=== PATIENT | female | born 1945 | race American Indian/Alaskan Native ===

== ENCOUNTER → 2024-02-26 | Outpatient (CLI) | payer MEDICARE, MEDICAID, SELFPAY ==
--- NOTE | 2024-02-26 08:57 | EKG_ITS ---
[facility] Test Date: 2024-02-26 Pat Name: MARAL ROBBINS Department: Room: - Gender: Female Loan Operations Manager: SHIV : 1945 Requested By: Blayne Lantigua Order Number: [id number] Reading MD: Blayne Lantigua Measurements Intervals [place] Rate: 75 P: 164 MT: 232 QRS: 246 QRSD: 127 T: 114 QT: 416 QTc: 468 Interpretive Statements ELECTRONIC VENTRICULAR PACEMAKER ABNORMAL RHYTHM ECG Compared to ECG 11/11/2023 20:44:19 No significant changes /store/S0/[id number]
[2024-02-26 09:02] LABS: Basophils % (Auto) 0 % (0-2.5); Eosinophils # (Auto) 0.2 Thou/mm3 (0.0-0.5); Eosinophils % (Auto) 3 % (0-10); Hematocrit 37.4 % (36.0-46.0); Hemoglobin 11.7 g/dL (12.0-16.0); Immature Granulocytes % (Auto) 1 % (0-0); Immature Granulocytes Auto 0.03 Thou/mm3 (0.00-0.00); Lymphocytes # (Auto) 1.2 Thou/mm3 (1.0-4.8); Lymphocytes % (Auto) 21 % (10-50); Mean Corpuscular HGB Conc 31.3 g/dl (31.0-37.0); Mean Corpuscular Hemoglobin 26.7 pg (25.0-35.0); Mean Corpuscular Volume 85 fL (80-100); Monocytes # (Auto) 0.4 Thou/mm3 (0.0-0.8); Monocytes % (Auto) 7 % (0-12); Neutrophils # (Auto) 3.8 Thou/mm3 (1.8-7.7); Neutrophils % (Auto) 68 % (37-80); Nucleated Red Blood Cell % 0 /100 WBC (0); Platelet Count 228 Thou/mm3 (140-440); RDW Standard Deviation 54.1 fL (36.4-46.3); Red Blood Count 4.39 Miln/mm3 (4.00-5.20); White Blood Count 5.6 Thou/mm3 (3.6-11.0)
[2024-02-26 09:10] LABS: Partial Thromboplastin Time 32.2 Seconds (22.0-36.0); Prothrombin Time 11.4 Seconds (9.0-12.2)
[2024-02-26 09:15] LABS: Alanine Aminotransferase 48 U/L (10-49); Albumin, Serum 3.9 gm/dL (3.4-4.8); Albumin/Globulin Ratio 1.2 (1.2-2.2); Alkaline Phosphatase 120 U/L (46-116); Anion Gap 9 (7-16); Aspartate Amino Transferase 43 U/L (0-34); BUN/Creatinine Ratio 11 Ratio (12-20); Bilirubin,Total 0.4 mg/dL (0.3-1.2); Blood Urea Nitrogen 46 mg/dL (9-23); Calcium 9.2 mg/dL (8.3-10.6); Calcium (Corrected) 9.3 mg/dL (8.5-10.1); Carbon Dioxide 27.7 mMol/L (20.0-31.0); Chloride 97 mMol/L (98-107); Creatinine (Component) 4.1 mg/dL (0.6-1.3); Globulin 3.3 gm/dL (2.3-3.5); Glucose 187 mg/dL (74-106); Osmolality,Calculated 285 (275-295); Potassium 3.8 mMol/L (3.4-5.1); Sodium 134 mMol/L (136-145); Total Protein 7.2 gm/dL (5.7-8.2); eGFR 11 See Note
== END | disposition home or self-care (01) ==
LOC: SLAB 08:21 → SEKG 08:27
PROVIDERS: PCP Internal Medicine; Referring Provider Student in an Organized Health Care Education/Training Program; Visit Provider Student in an Organized Health Care Education/Training Program
DX: Z01.818 Encounter for other preprocedural examination (principal); I73.9 Peripheral vascular disease, unspecified; Z79.01 Long term (current) use of anticoagulants
CPT/HCPCS: 36415; 80053; 85025; 85610; 85730; 93005

== ENCOUNTER 2024-03-14 12:00 | Emergency (ER) | payer MEDICARE, MEDICAID, SELFPAY ==
[2024-03-14 12:13] VITALS: BP 138/68; PULSE 74; RESP 18; RESP 20; TEMP 36.9; O2SAT 97; O2SAT 99; BMI 28.3
--- NOTE | 2024-03-14 12:48 | PC.NURSE ---
RN AT BEDSIDE WITH PT; PT REQUESTING NITROGLYCERIN MEDICATION BUT PT DENIES ANY CHEST PAIN OR ANY PAIN AT THIS TIME; SHANE Mondragon NP MADE AWARE THAT PT WANTS TO TALK TO PROVIDER REGARDING THIS MEDICATION. PER SHANE Mondragon NP, WILL GO SEE PT SOON.
--- NOTE | 2024-03-14 12:54 | XR_ITS ---
Examination: AP chest single view Technique: AP portable upright chest single view Exam date and time: March 06, 2024 1301 hrs. Comparison October 25, 2023 Indications: Onset chest pain today. Findings: Mild enlargement cardiac contour Moderate vascular congestion. No lobar pneumonia No gareth pulmonary edema Right subclavian dialysis catheter tip SVC satisfactory position No pneumothorax Cardiac leads satisfactory position Impression: Moderate vascular congestion
--- NOTE | 2024-03-14 12:54 | EKG_ITS ---
[facility] Test Date: 2024-03-14 Pat Name: MARAL ROBBINS Department: Room: - Gender: Female Internship: : 1945 Requested By: Alicia Warren Order Number: [id number] Reading MD: Alicia Warren Measurements Intervals [place] Rate: 74 P: 56 ME: 206 QRS: -70 QRSD: 182 T: 83 QT: 483 QTc: 537 Interpretive Statements ELECTRONIC VENTRICULAR PACEMAKER ABNORMAL RHYTHM ECG Compared to ECG 02/26/2024 08:59:56 No significant changes /store/S0/[id number]
--- NOTE | 2024-03-14 12:55 | EDNOTE_ITS ---
ED Chest Pain RME/HPI General Chief Complaint: Chest Pain Stated Complaint: CHEST PAIN Time Seen by Provider: 03/14/24 12:34 Arrival date/time: 03/14/24 12:00 This is a 78-year-old female that comes from [facility]. Complaining of chest pain that started 2 weeks ago. Patient states that she fell forward with her walker and the walker hit her in the chest. Patient states since then she has had chest pain. Patient has a history of end-stage renal failure on dialysis 2 times a week, high blood pressure, diabetes. Patient denies fever, cough, sore throat, runny nose. Patient denies abdominal pain, nausea, vomiting, diarrhea. Patient denies any other injuries. Patient recently discharged in the hospital for a GI bleed. 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 Anastomotic site ulcer 1.5 cm shallow and not bleeding. Related Data Home Medications ?Medication ?Instructions ?Recorded ?Confirmed pregabalin 100 mg capsule (Lyrica) 100 mg PO DAILY 06/30/20 12/10/23 atorvastatin 40 mg tablet 40 mg PO QDAY 10/02/23 12/10/23 rivastigmine 4.6 mg/24 hour 4.6 mg topical QDAY 10/02/23 12/10/23 transdermal patch meclizine 25 mg tablet 25 mg PO DAILY 10/26/23 12/10/23 acetaminophen 500 mg tablet 500 mg PO Q6H PRN Pain 12/10/23 12/10/23 apixaban 2.5 mg tablet 2.5 mg PO BID 12/10/23 12/10/23 cholecalciferol (vitamin D3) 50 2,000 unit PO QDAY 12/10/23 12/10/23 mcg (2,000 unit) tablet cholestyramine (with sugar) 4 gram 4 g PO BID 12/10/23 12/10/23 powder for susp in a packet (Questran) dicyclomine 10 mg capsule 10 mg PO Q24H PRN Diarrhea 12/10/23 12/10/23 docusate sodium 100 mg capsule 100 mg PO QDAY 12/10/23 12/10/23 (Dulcolax Stool Softener (docusate)) insulin aspart U-100 100 unit/mL See Rx Instructions .Route .COMPLEX 12/10/23 12/10/23 subcutaneous solution (Novolog U-100 Insulin aspart) vibegron 75 mg tablet (Gemtesa) 75 mg PO QMORNING 12/10/23 12/10/23 Previous Rx's ?Medication ?Instructions ?Recorded sitagliptin phosphate 25 mg tablet 25 mg PO QDAY 30 days #30 tabs 09/18/23 (Januvia) Allergies Allergy/AdvReac Type Severity Reaction Status Date / Time adhesive tape Allergy Mild WELTS, Verified 12/10/23 05:00 BLISTER codeine Allergy Mild ABD PAIN Verified 12/10/23 05:00 hydrocodone Allergy Mild ITCH Verified 12/10/23 05:00 Latex, Natural Rubber Allergy Mild WELTS Verified 12/10/23 05:00 Review of Systems Review of Systems Systems Reviewed: All systems reviewed, normal except as documented Past Medical History Surgical History OTHER SURGICAL HX: As in the history of present illness ED Exam General General appearance: Present alert and in no apparent distress Head Head exam: Present atraumatic Eye Eye exam: Present normal appearance, PERRL and EOMI ENT ENT exam: Present normal exam, normal oropharynx and mucous membranes moist Neck Neck exam: Present normal inspection, full ROM and trachea midline Chest Chest inspection: Present normal inspection and symmetric chest wall rise Respiratory Respiratory exam: Present normal lung sounds bilaterally Cardiovascular Cardiovascular exam: Present regular rate, normal rhythm and normal heart sounds Abdominal Exam Abdominal exam: Present soft Extremities Exam Extremities exam: Present normal inspection and full ROM Back Exam Back exam: Present normal inspection and full ROM Neurological Exam Neurological exam: Present alert, oriented X3 and CN II-XII intact Psychiatric Psychiatric exam: Present normal affect and normal mood Skin Skin exam: Present warm, dry, intact and normal color Course Quality Measures none Orders Category Date Time Status EKG (ED ONLY) *Do not use* NOW Care 03/14/24 12:54 Completed EKG (ED Only) Stat Exams 03/14/24 12:54 Draft XR chest 1V Stat Exams 03/14/24 12:54 Completed BNP [B-Type Natriuretic Peptide] Stat Lab 03/14/24 13:00 Completed CBC Stat Lab 03/14/24 13:00 Completed Comprehensive Metabolic Panel Stat Lab 03/14/24 13:00 Completed Troponin I Stat Lab 03/14/24 13:00 Completed Acetaminophen Tab [Tylenol ES Tab] Med 03/14/24 14:47 Discontinued 1,000 mg PO X1 ONE Vital Signs Vital signs: Vital Signs Temperature 98.4 F 03/14/24 12:13 Pulse Rate 74 03/14/24 12:13 Respiratory Rate 20 03/14/24 12:13 Blood Pressure 138/68 H 03/14/24 12:13 Pulse Oximetry (%) 99 03/14/24 12:13 Oxygen Delivery Method Room Air 03/14/24 12:13 Procedures -ED EKG Interpretation #1: Date of EK03/14/24 Time of EK:58 Rate: 78 Interpretation: Interpreted by me (paced rhythm ) Additional EKG comment: ventricular paced rhythm Chest Pain MDM Narrative MDM Narrative:: chest ray shows: Findings: Mild enlargement cardiac contour Moderate vascular congestion. No lobar pneumonia No gareth pulmonary edema Right subclavian dialysis catheter tip SVC satisfactory position No pneumothorax Cardiac leads satisfactory position Impression: Moderate vascular congestion Labs unremarkable CBC BUN is elevated at 45 and creatinine is 4.2 but patient is a dialysis BnP slightly elevated. Patient was given Tylenol for pain. Troponin was negative. It appears patient has a contusion to chest can treat with Tylenol. At care home. Can follow-up with care home provider or come back to the emergency room if symptoms change or worsen. Patient data External records reviewed:: [facility] previous records Clinical information provided by:: patient Social determinants that could affect healthcare access:: none Patient has the following chronic illnesses:: See note How is presenting disease/condition affected by chronic disease/condition?: uneffected by Evaluation data The following diagnostics were reviewed and interpreted by me:: lab results, radiology exam(s) and EKG tracing(s) Lab and/or radiology exams considered but not ordered:: None Interpretation Summary: See note Medications / Prescriptions Medications or Prescriptions considered but not ordered:: None Medication administrations:: Medication Administration History Discontinued Medications Acetaminophen (Acetaminophen 500 Mg Tablet) 1,000 mg PO X1 ONE Stop: 03/14/24 14:48 Last Admin: 03/14/24 15:21 Dose: 1,000 mg Documented By: JAZMIN See [facility] Consultations Consultation(s) initiated? (list below): No Diagnosis Chest Pain Differential Diagnosis: fracture of rib, pneumothorax, unstable angina pectoris, st elevation myocardial infarction and costochondritis Most likely diagnosis given after review of the tests above:: Chest contusion Admission Indicated Admission indicated?: not indicated Explain why admission is indicated or not indicated:: Not needed Admission Request Was there a request for admission?: No Disposition Plan Disposition Plan: Discharge Discharge Attestation Discharge Attestation: The patient and all family members were given an opportunity to ask questions and understood the discharge instructions. Discharge instructions specifically effects, indications for sooner follow up or return to the emergency department, and the expected course of current diagnosis. Patient condition: Stable Discharge Plan Plan Patient Disposition: Xfer Skilled Nsg Fac (SNF) Patient condition on transfer: Stable Prescriptions/Referrals Prescriptions/Med Rec: No Action pregabalin [Lyrica] 100 mg Capsule 100 mg PO DAILY apixaban 2.5 mg Tablet 2.5 mg PO BID cholecalciferol (vitamin D3) 50 mcg (2,000 unit) Tablet 2,000 unit PO QDAY Rx Instructions: for supplement dicyclomine 10 mg Capsule 10 mg PO Q24H PRN (Reason: Diarrhea) docusate sodium [Dulcolax Stool Softener (dss)] 100 mg Capsule 100 mg PO QDAY Rx Instructions: for constipation Gemtesa 75 mg tablet 75 mg PO QMORNING insulin aspart U-100 [Novolog U-100 Insulin aspart] 100 unit/mL Solution See Rx Instructions .ROUTE .COMPLEX Rx Instructions: Inject as per sliding scale: if 150- 199=2 units; 200- 249=3 units; 250- 299= 6 units; 300- 349= 9 units; 400- 450= 12 units Notify md, subcutaneously before meals. cholestyramine (with sugar) [Questran] 4 gram Powder In Packet 4 g PO BID Rx Instructions: administer w/meal; avoid other meds within 1hr before or 4-6hr after dose. for Diarrhea chronic diarrhea R/T DM and Renal disease acetaminophen 500 mg Tablet 500 mg PO Q6H PRN (Reason: Pain) Januvia 25 mg tablet 25 mg PO QDAY 30 Days Qty: 30 2RF Rx Instructions: for dm atorvastatin 40 mg tablet 40 mg PO QDAY rivastigmine 4.6 mg/24 hour Patch 24 Hour 4.6 mg TOPICAL QDAY Rx Instructions: for dementia and remove per schedule meclizine 25 mg Tablet 25 mg PO DAILY Rx Instructions: for dizziness Problem List Clinical Impression: End stage renal disease on dialysis, Chest wall contusion Patient/Caregiver Discharge Instructions Discharge Activity: activity as tolerated Education Materials: Bruises (Contusions) Additional Instructions: May take Tylenol for pain. Follow-up with primary provider in 1 to 2 days. Come back to the emergency room if symptoms change or worsen. Print Language: Cameroonian Stand Alone Forms: Sophia Award Info., Patient Portal Info Letter PA/STRUCTURAL LAYOUT WORKER Supervising Physician PA/STRUCTURAL LAYOUT WORKER Supervising Physician: tushar
[2024-03-14 13:30] LABS: Basophils % (Auto) 1 % (0-2.5); Eosinophils # (Auto) 0.3 Thou/mm3 (0.0-0.5); Eosinophils % (Auto) 5 % (0-10); Hematocrit 32.6 % (36.0-46.0); Hemoglobin 10.2 g/dL (12.0-16.0); Immature Granulocytes % (Auto) 1 % (0-0); Immature Granulocytes Auto 0.07 Thou/mm3 (0.00-0.00); Lymphocytes # (Auto) 1.7 Thou/mm3 (1.0-4.8); Lymphocytes % (Auto) 27 % (10-50); Mean Corpuscular HGB Conc 31.3 g/dl (31.0-37.0); Mean Corpuscular Hemoglobin 26.8 pg (25.0-35.0); Mean Corpuscular Volume 86 fL (80-100); Monocytes # (Auto) 0.6 Thou/mm3 (0.0-0.8); Monocytes % (Auto) 10 % (0-12); Neutrophils # (Auto) 3.6 Thou/mm3 (1.8-7.7); Neutrophils % (Auto) 57 % (37-80); Nucleated Red Blood Cell % 0 /100 WBC (0); Platelet Count 243 Thou/mm3 (140-440); White Blood Count 6.2 Thou/mm3 (3.6-11.0)
[2024-03-14 13:41] LABS: B-Type Natriuretic Peptide 347 pg/mL (0-100)
[2024-03-14 13:44] LABS: Alanine Aminotransferase 15 U/L (10-49); Albumin, Serum 3.5 gm/dL (3.4-4.8); Albumin/Globulin Ratio 1.1 (1.2-2.2); Alkaline Phosphatase 106 U/L (46-116); Anion Gap 11 (7-16); Aspartate Amino Transferase 17 U/L (0-34); BUN/Creatinine Ratio 11 Ratio (12-20); Bilirubin,Total 0.3 mg/dL (0.3-1.2); Blood Urea Nitrogen 45 mg/dL (9-23); Calcium 8.7 mg/dL (8.3-10.6); Calcium (Corrected) 9.1 mg/dL (8.5-10.1); Carbon Dioxide 24.4 mMol/L (20.0-31.0); Chloride 101 mMol/L (98-107); Creatinine (Component) 4.2 mg/dL (0.6-1.3); Estimated Creatinine Clearance 9.3 mL/min (>60); Globulin 3.2 gm/dL (2.3-3.5); Glucose 91 mg/dL (74-106); Osmolality,Calculated 283 (275-295); Potassium 3.5 mMol/L (3.4-5.1); Sodium 136 mMol/L (136-145); Total Protein 6.7 gm/dL (5.7-8.2); Troponin I < 0.020 ng/mL (0.0-0.045); eGFR 10 See Note
[2024-03-14 15:14] VITALS: BP 104/49; PULSE 70; RESP 15; TEMP 36.4; O2SAT 94
[2024-03-14] MEDS: ACETAMINOPHEN 500 MG TABLET 1000 MG PO (15:21)
--- NOTE | 2024-03-14 15:50 | PC.NURSE ---
Report called to An LALA at [facility] all concerns and questions answered will call back with ETA time
--- NOTE | 2024-03-14 16:04 | PC.CC ---
ED Nurse Transition assisted with transportation set up. Pat was contacted and transportation number #[phone]. Transportation paperwork was faxed to [place] dispatch, awaiting transport ETA.
--- NOTE | 2024-03-14 16:27 | PC.CC ---
ED Accounting Advisory Services Manager contacted [facility] to receive ETA for transportation. [facility] reported transportation paperwork has not been received. Insurance Loss Adjuster fax paperwork again.
--- NOTE | 2024-03-14 17:06 | PC.CC ---
ED Room Worker received transportation information from [facility] 1919.
[2024-03-14 17:10] VITALS: BP 113/63; PULSE 70; RESP 16; TEMP 36.7; O2SAT 97
--- NOTE | 2024-03-14 19:34 | PC.NURSE ---
1934 ATTEMPTED TO CALL WITH ETA NO ANSWER AND UNABLE TO LEAVE MESSAGE.
== END 2024-03-14 19:47 | disposition skilled nursing facility (03) ==
LOC: SERX 16:41
PROVIDERS: Nurse Practitioner Family; Emergency Provider Emergency Medicine; PCP Internal Medicine
DX: S20.219A Contusion of unspecified front wall of thorax, initial encounter (principal); W19.XXXA Unspecified fall, initial encounter; I12.0 Hypertensive chronic kidney disease with stage 5 chronic kidney disease or end stage renal disease; E11.22 Type 2 diabetes mellitus with diabetic chronic kidney disease; N18.6 End stage renal disease; Z99.2 Dependence on renal dialysis; Z79.4 Long term (current) use of insulin
CPT/HCPCS: 36415; 71045; 80053; 83880; 84484; 85025; 93005; 99283; A9270